=== PATIENT | female | born 1955 | race Caucasian/White ===

== ENCOUNTER 2018-08-20 22:11 | Inpatient (IN) | payer BC ==
[~2018-08-20] VITALS: Ht 170.2 cm; Wt 90.7 kg
--- NOTE | ~2018-08-20 | HEMODYNAMI ---
PATIENT:YULIYA BOWSER MEDICAL RECORD: [id number] : 59 LOCATION:[facility] ADMISSION DATE: 08/20/18 Generatedon:08/20/201823:52 Patient name: YULIYA BOWSER Patient #: [id number] SSN: DO B: 1955 Date of study: 08/20/2018 Page: Of Hemodynamic Procedure Report Patient Data Patient Demographics Procedure consent was obtained First Name: YULIYA Gender: Female Last Name: MAGUE : 1955 Middle Initial: S Age: 62 year(s) Patient #: [id number] Race: Unknown Additional ID: [id number] Contact details Address: [address] [place] [address] State: [place]: [facility] [place] Zip code: [address] Admission Admission Data Admission Date: 08/20/2018 Admission Time: 22:11 Procedure Procedure Types Cath Procedure Diagnostic Procedure LHC LHC w/Coronaries PCI Procedure AMI/SVG/RESOURCES REPRESENTATIVE PTCA or Stent SVG-BMS/COURTENY Initial Procedure Description Procedure Date Procedure Date: 08/20/2018 Procedure Start Time: 23:29 Procedure End Time: 23:52 Procedure Staff Name Function Alexandru Muniz MD Performing Physician [facility] RT Monitor Talita Mancia RN Nurse Mercy Babcock RT Scrub Procedure Data Cath Procedure Fluoroscopy Diagnostic fluoroscopy Total fluoroscopy Time: 3.2 time: 3.2 min min Diagnostic fluoroscopy Total fluoroscopy dose: 381 dose: 381 mGy mGy Contrast Material Contrast Material Type Amount (ml) Isovue 300 77 Entry Location Entry Primary Successful Side Size Upsize Upsize Entry Closure Succes sful Closure Location (Fr) 1 (Fr) 2 (Fr) Remarks Device Remarks Femoral Right 6 Fr Exoseal artery Short Estimated blood loss: 10 ml Diagnostic catheters Device Type Used For End Catheter Placement MULTIPACK JL 4.0 5Fr Left Coronary catheter Angiography MULTIPACK Pigtail 5 Fr LV Angiography catheter Procedure Complications No complications Procedure Medications Medication Administration Route Dosage Versed I.V. 2 mg Fentanyl I.V. 50 mcg Versed I.V. 2 mg Fentanyl I.V. 50 mcg Versed I.V. 2 mg 0.9% NaCl I.V. 100 ml/hr Oxygen etCO2 Nasal cannula 2 l/min Lidocaine 2% added to field 20 Heparin Flush Bag added to field 2 bags (1000units/500ml NS) Integrilin (Bolus I.V. 7.9 ml 2mg/ml) Lopressor I.V. 5 mg Solumedrol I.V. 125 mg Hemodynamics Rest Heart Rate: 86 (bpm) Pressure Samples Time Site Value (mmHg) Purpose Heart Use Rate(bpm) 23:39 LV 100/16,21 EDP 79 Gradients Valve Time Site Site Mean SEP/DFP Peak To Heart Use 1 2 (mmHg) (sec/min) Peak Rate (mmHg) (bpm) Aortic 23:39 LV AO 87 Snapshots Pre Cath Intra NCS Post Cath Vital Signs Time Heart Resp SPO2 etCO2 NIBP (mmHg) Rhythm Pain Sedation Rate (ipm) (%) (mmHg) Status Level (bpm) 23:18:36 83 14 99 30.7 152/98(124) NSR 0 (11) 10(A) , No pain 23:22:56 78 18 100 29.7 156/100(121) NSR 0 (11) 10(A) , No pain 23:28:19 89 13 100 23 153/100(111) NSR 0 (11) 10(A) , No pain 23:32:19 90 12 100 31.2 120/95(112) NSR 0 (11) 10(A) , No pain 23:36:33 74 19 100 35.6 121/76(101) NSR 0 (11) 10(A) , No pain 23:40:43 68 12 99 37.9 102/66(86) NSR 0 (11) 9(A) , No pain 23:44:53 75 18 99 37.2 95/56(73) NSR 0 (11) 9(A) , No pain 23:48:59 74 17 98 36.4 103/65(81) NSR 0 (11) 10(A) , No pain Medications Time Medication Route Dose Verified Delivered Reason Notes E ffectiveness by by 23:30:11 Versed I.V. 2 mg Alexandru Sanon for sedation St Paco Mancia MD RN 23:30:18 0.9% NaCl I.V. 100 Alexandru Talita used for ml/hr [facility] procedure MD DIALLO 23:30:21 Fentanyl I.V. 50 Alexandru Talita for sedation mcg St Paco Mancia MD RN 23:30:28 Oxygen etCO2 2 Alexandru Talita used for Nasal l/min [facility] procedure cannula MD DIALLO 23:31:27 Solumedrol I.V. 125 Alexandru Talita Per mg St Paco stout MD RN 23:31:37 Lidocaine 2% added 20ml Alexandru Horvath for local to vial [facility] anesthetic field MD BRADY 23:31:44 Heparin Flush added 2 Alexandru Alexandru used for Bag to bags [facility] procedure (1000units/500ml field MD BRADY NS) 23:34:30 Versed I.V. 2 mg Alexandru Talita for sedation St Paco Mancia MD, RN 23:34:37 Fentanyl I.V. 50 Alexandru Talita for sedation mcg St Paco Mancia MD, RN 23:34:51 Integrilin I.V. 7.9 Alexandru Talita for wasted (Bolus 2mg/ml) ml [facility] antiplatelet 2.1mL MD DIALLO therapy 23:37:42 Versed I.V. 2 mg Alexandru Talita for sedation St Paco Mancia MD, RN 23:39:17 Lopressor I.V. 5 mg Alexandru Talita Per St Paco stout MD, RN Procedure Log Time Note 23:05:58 Time tracking: Regular hours (M-F 7:00 - 5:00) 23:06:02 Plan of Care:Hemodynamics will remain stable., Cardiac rhythm will remain stable., Comfort level will be maintained., Respiratory function will remain adequate., Patient/ family verbilizes understanding of procedure., Procedure tolerated without complication.. 23:06:25 Nova Counts RT(R) sent for patient. Start room use. 23:17:17 Patient received from ED to CCL 1 Alert and oriented. Tansferred to table in Supine position. 23:17:18 Warm blankets applied, and yulisa hugger turned on for patient comfort. 23:17:19 Correct patient and procedure confirmed by team. 23:17:22 Signed procedure consent form obtained from patient. 23:17:23 ECG and BP/O2 sat monitors applied to patient. 23:17:24 Vital chart was started 23:18:16 Baseline sample Acquired. 23:24:03 Rhythm: sinus rhythm 23:24:05 Full Disclosure recording started 23:27:41 Zero performed for pressure channel P1 23:27:44 Zero performed for pressure channel P1 23:27:52 H&P Date Dictated: 08/20/2018 Emergent; H&P N/A. 23:27:53 Pre-procedure instructions explained to patient. 23:27:53 Pre-op teaching completed and patient verbalized understanding. 23:27:55 Family in waiting room. 23:27:57 Patient NPO since Midnight. 23:28:01 Is the patient allergic to Iodine/contrast media? Yes. 23:28:27 Is patient on blood thinner?No 23:28:28 Patient diabetic? No. 23:28:31 Was the patient premedicated? Yes 23:28:35 Previous problem with sedation/anesthesia? No ? 23:28:37 Snore? Yes 23:28:38 Sleep apnea? No 23:28:39 Deviated septum? No 23:28:40 Opens mouth fully? Yes 23:28:40 Sticks out tongue? Yes 23:28:42 Airway obstruction? No ? 23:28:48 Dentures? Yes PARTIAL OUT 23:29:03 Pre procedure: right dorsailis pedis pulse 2+ Normal; easily identifiable; not easily obliterated 23:29:09 Patient pain scale 10/10 Chest. 23:29:18 IV patent on arrival in left antecubital with 0.9% NaCl at KVO. 23:29:20 Lab results completed and on chart. 23:29:24 Right groin area was prepped with chlora-prep and draped in sterile fashion 23:29:25 Alarms reviewed by R. N. 23:29:25 Sharps counted by scrub and verified by R.N. 23:29:28 Final Timeout: patient, procedure, and site verified with staff and physician. All members of the team are in agreement. 23:29:29 Right groin site verified by team. 23:29:31 Maximum allowable Isovue 300 dose 300ml. Physician notified. (300ml for normal creatinines. For patients with creatinine of 1.7 or higher multiply weight(kg) x 5 divided by creatinine.) 23:29:34 Fire Safety Assessment: A--An alcohol-based skin anteseptic being used preoperatively., C--Open oxygen or nitrous oxide is being used., D--An ESU, laser, or fiber-optic light is being used. 23:29:37 Physical assessment completed. ASA score P 3 - A patient with severe systemic disease as per Alexandru Muniz MD. 23:29:40 Sedation plan: IV Moderate Sedation Medication:Versed, Fentanyl 23:29:43 Procedure started. 23:29:45 Local anesthetic to right femoral artery with Lidocaine 2% by Alexandru Muniz MD.INITIAL ACCESS ONLY 23:29:53 A 6 Fr Short sheath was inserted into the Right Femoral artery 23:30:01 Use device set Femoral Dx 23:30:02 ACIST Syringe (69128) opened to sterile field. 23:30:03 Bag Decanter (2002S) opened to sterile field. 23:30:03 Medline Cath Pack ([id number]) opened to sterile field. 23:30:04 DIAGNOSTIC WIRE .035 260cm J wire (445998) opened to sterile field. 23:30:06 ACIST Hand Control (00273) opened to sterile field. 23:30:06 ACIST Manifold (77788) opened to sterile field. 23:30:07 DIAGNOSTIC Multipack 5Fr catheter set ([id number]) opened to sterile field. 23:30:11 Versed 2 mg I.V. was administered by Talita Mancia RN; for sedation; 23:30:18 0.9% NaCl 100 ml/hr I.V. was administered by Talita Mancia RN; used for procedure; 23:30:19 SHEATH 6FR Brooks (SQD540) opened to sterile field. 23:30:21 Fentanyl 50 mcg I.V. was administered by Talita Mancia RN; for sedation; 23:30:28 Oxygen 2 l/min etCO2 Nasal cannula was administered by Talita Mancia RN; used for procedure; 23:30:[address] FUENTES PCI 23:30:38 WHISPER 300cm guide wire ([id number]) opened to sterile field. 23:30:40 INFLATOR [facility]it BasixCompak ([id number]) opened to sterile field. 23:30:54 GUIDE 6FR JR 4.0 catheter ([id number]) opened to sterile field. 23:31:27 Solumedrol 125 mg I.V. was administered by Talita Mancia RN; Per physician; 23:31:37 Lidocaine 2% 20ml vial added to field was administered by Alexandru Muniz MD; for local anesthetic; 23:31:44 Heparin Flush Bag (1000units/500ml NS) 2 bags added to field was administered by Alexandru Muniz MD; used for procedure; 23:32:01 6 Fr JR 4.0 guide catheter was inserted over the wire 23:32:13 RCA angiography performed. 23:32:21 WHISPER wire advanced. 23:33:41 Inflate balloon Inflation number: 1 A EMERGE OTW 3.0 x 15 balloon ([id number]) was prepped and advanced across the Mid RCA, then inflated to 12 QUIANA for 0:10 (min:sec). 23:34:30 Versed 2 mg I.V. was administered by Talita Mancia RN; for sedation; 23:34:37 Fentanyl 50 mcg I.V. was administered by Talita Mancia RN; for sedation; 23:34:50 Balloon removed over the wire. 23:34:51 Integrilin (Bolus 2mg/ml) 7.9 ml I.V. was administered by Talita Mancia RN; for antiplatelet therapy; wasted 2.1mL 23:36:49 Place stent Inflation Number: 2 A DARA OTW 3.5 x 22 stent ([id number]) was prepped and advanced across the Mid RCA. The stent was deployed at 14 QUIANA for 0:22 (min:sec). 23:37:42 Versed 2 mg I.V. was administered by Talita Mancia RN; for sedation; 23:37:47 Stent catheter was removed intact over wire. 23:37:47 Wire removed. 23:37:48 Guide catheter removed. 23:38:51 A MULTIPACK JL 4.0 5Fr catheter was advanced over the wire and used for Left Coronary Angiography. 23:39:15 A MULTIPACK Pigtail 5 Fr catheter was advanced over the wire and used for LV Angiography. 23:39:17 Lopressor 5 mg I.V. was administered by Talita Mancia RN; Per physician; 23:39:32 LV gram done using POLANCO 23:39:36 EF : 55 % 23:39:40 Injector settings: Ml/sec: 10, Volume: 20, 23:39:52 Catheter removed. 23:40:04 Sheath removed intact; hemostasis achieved with Exoseal to the Right Femoral artery. 23:40:07 Procedure ended.(Physican Out) 23:41:19 Fluoroscopy time 03.20 minutes. 23:41:24 Fluoroscopy dose: 381 mGy 23:41:24 Flurop Dose total: 381 23:41:28 Contrast amount:Isovue 300 77ml. 23:41:39 Sharps counted by scrub and verified by R.N. 23:41:40 Insertion/operative site no bleeding no hematoma. 23:41:43 Post-op/insertion site Right Femoral artery dressed using a 4 x 4 and Tegaderm. 23:41:46 Post right femoral artery:stable, clean and dry 23:41:47 Post Procedure Pulses reassessed and unchanged 23:41:51 Post-procedure physical assessment completed. ASA score P 3 - A patient with severe systemic disease as per Alexandru Muniz MD. 23:41:53 Post procedure rhythm: unchanged. 23:42:00 Estimated blood loss: 10 ml 23:42:02 Post procedure instruction explained to patient.Patient verbalizes understanding. 23:42:02 Patient needs reinforcement of post procedure teaching. 23:42:10 Procedure Complication : No complications 23:42:34 See physician's report for complete and final results. 23:43:06 Procedure type changed to Cath procedure, Diagnostic procedure, LHC, LHC w/Coronaries, PCI procedure, AMI/SVG/RESOURCES REPRESENTATIVE PTCA or Stent, SVG-BMS/COURTNEY Initial 23:44:26 EXOSEAL 6Fr (EX600) opened to sterile field. 23:44:28 Tegaderm 4 x 4 (1626W) opened to sterile field. 23:44:49 Procedure and supply charges have been captured, reviewed, submitted and are correct. 23:51:53 Vital chart was stopped 23:51:55 Report given to CVICU. 23:51:58 Patient transfered to CVICU with Bed. 23:52:02 Procedure ended. 23:52:02 Full Disclosure recording stopped 23:52:06 End room use (Document Last) Intervention Summary Intervention Notes Time ActionType Lesion and Equipment Action# Pressure Duration Attributes Used 23:33:41 Inflate Mid RCA EMERGE OTW 1 12 00:10 balloon 3.0 x 15 balloon ([id number]) 23:36:49 Place stent Mid RCA DARA OTW 3.5 2 14 00:23 x 22 stent ([id number]) Device Usage Item Name Manufacture Quantity Catalog Number Hospital Part Current M inimal Lot# / Charge Number Stock Stock Serial# Code ACIST Syringe Acist 1 07857 453286 387665 518823 2 0 (28601) Medical Systems Inc Bag Decanter Microtek 1 947167 17230 724274 5 () Medical Inc. Medline Cath Medline 1 [id number] 278332 72927 829423 5 Pack ([id number]) DIAGNOSTIC St Sukumar 1 575676 456741 729536 828628 3 0 WIRE .035 260cm J wire (813723) ACIST Hand Acist 1 68536 541697 152170 310181 5 Control Medical (45065) Systems Inc ACIST Acist 1 32756 262420 617498 931579 5 Manifold Medical (25869) Systems Inc DIAGNOSTIC Cardinal 1 VT3087 263711 03537 915600 3 0 Multipack 5Fr Health catheter set (YM5622) SHEATH 6FR Terumo 1 VRC504 886853 973157 913300 4 0 Brooks (BOU462) WHISPER 300cm Ballard 1 [id number] 503968 652173 477000 5 guide wire Vascular ([id number]) INFLATOR [facility] 1 GA9486 531101 374889 738909 1 5 [facility] BasixCompak (EY9819) GUIDE 6FR JR Medtronic 1 [id number] 314591 42595 770473 1 4.0 catheter (EO1GT31) EMERGE OTW [place] 1 [id number] 625142 062133 335632 5 [id number] 3.0 x 15 Scientific balloon ([id number]) DARA OTW 3.5 Medtronic 1 [id number] 147120 7317212 296001 5 [id number] x 22 stent ([id number]) MULTIPACK JL Cardinal 1 [id number] 5 4.0 5Fr Health catheter MULTIPACK Cardinal 1 692908 5 Pigtail 5 Fr Health catheter EXOSEAL 6Fr Cardinal 1 EX600 965855 325795 938688 1 0 (EX600) Health Tegaderm 4 x 3M 1 1626W 699255 080668 824567 5 4 (1626W) Signature Audit Beason Stage Time Signature Unsigned Intra-Procedure 08/20/2018 Nova 11:52:16 PM Counts RT(R) Signatures Monitor : Nova Signature : Counts RT Date : Time : [place] [address] [place] [address]
--- NOTE | ~2018-08-20 | EC ---
PATIENT:YULIYA BOWSER DATE OF SERVICE: 08/21/18 SEX: F MEDICAL RECORD: [id number] DATE OF : 59 LOCATION:[place] [address] AGE OF PATIENT: 62 ADMISSION DATE: 08/21/18 REFERRING PHYSICIAN: INTERPRETING PHYSICIAN: RONNY VICK MD ECHOCARDIOGRAM REPORT ECHO CHARGES 4 ECHO COMPLETE Date: 08/21/18 CLINICAL DIAGNOSIS: ACUTE CT ECHOCARDIOGRAPHIC MEASUREMENTS (adult normal given) AC root (d.<3.7cm) 3.3 cm LV Septum d (<1.2 cm> 1.3 cm Valve Excursion 1.6 cm LV Septum (systole) 1.6 cm Left Atria (s.<4.0cm> 3.5 cm LVPW d(<1.2cm) 1.5 cm RV (d.<2.3cm) 3.4 cm LVPW (sytole) 1.7 cm LV diastole(<5.6CM) 4.6 cm MV E-F(>70mm/sec) cm LV systole 3.1 cm LVOT Diameter 2.2 cm MV exc.(>10mm) 1.6 cm Est.ejection fraction (50-75%) % DOPPLER: LVIT cm/sec A 75.0 cm/sec E 61.0 cm/sec LA cm/sec RVSP 23 mmHg LVOT 124 cm/sec AOP1/2T m/s Asc. Ao 131 cm/sec RVOT 101 cm/sec RA cm/sec PA 124 cm/sec AV Gradient Peak 6.86 mmHg AV Mean 2.81 mmHg AV Area 3.8 cm MV Gradient Peak 4.16 mmHg MV Mean 1.50 mmHg MV Area cm COMMENTS: Package Wrapper: Reinier DOUGHERTY Public Relations Senior Associate: 3 Dr. Lewis TAPE# PACS Pericardial Effusion N DATE OF SERVICE: 08/21/2018 Adequate 2-D, color-flow and spectral Doppler, and M-mode. Borderline LVH. LV internal dimensions are normal. Wall motion is normal. EF is greater than 55%. Aortic valve is tricuspid. No evidence of stenosis on Doppler interrogation. Left atrium is normal. Mitral valve shows no prolapse. Trace MR. Right side is grossly normal. Trace TR. TRANSINT:[id number] Voice Confirmation ID: [id number] DOCUMENT ID: [id number] ECHOCARDIOGRAM REPORT [id number] YULIYA BOWSER GREGORY A MD CC: [id number] DICTATION DATE: 08/22/18 1328 [place] LAYER: 08/22/18 1533 DIS IN 08/22/[address] [place] [address] [place] [address]
--- NOTE | ~2018-08-20 | DS ---
PATIENT:YULIYA BOWSER :59 MEDICAL RECORD: [id number] DISCHARGE SUMMARY ADMISSION DATE: 08/20/18 DISCHARGE DATE: DATE OF ADMISSION: 08/20/2018 DATE OF DISCHARGE: 08/22/2018 PROBLEM LIST: Acute inferior myocardial infarction. BRIEF HISTORY AND HOSPITAL COURSE: She presented to the ER with acute inferior myocardial infarction. She underwent urgent revascularization and did well with the exception of some reperfusion arrhythmias, requiring cardioversion. LV function was preserved at that time. Discharged home on Plavix, aspirin, beta blockade, and statin. DIET: AHA diet. ACTIVITY: As tolerated. We will schedule for cardiac rehab as well. Follow up with me in 3-4 weeks. TRANSINT:[id number] Voice Confirmation ID: [id number] DOCUMENT ID: [id number] RONNY VICK MD CC: [id number] DICTATION DATE: 08/22/18821 CIGARETTE PACKING MACHINE OPERATOR: 08/22/18 2143 [facility] [address] [place] [address]
[2018-08-20 22:30] LABS: BASOPHILS 0.6 % (0-2); EOSINOPHILS 2.8 % (0-7); HEMATOCRIT 40.2 % (36.0-48.0); HEMOGLOBIN 14.1 g/dL (12-16); IMMATURE GRANULOCYTES 0.3 % (0-5); LYMPHOCYTES 44.3 % (15-50); MCH 30.8 pg (26.0-34.0); MCHC 35.1 g/dL (31.0-37.0); MCV 87.8 fL (80.0-100.0); MEAN PLATELET VOLUME 9.6 fL (7.4-10.4); PLATELET COUNT 313 10x3/uL (130-400); RBC 4.58 10x6/uL (4.00-5.40); RDW 13.2 % (11.5-14.5); WBC 12.3 10x3/uL (4.8-10.8)
[2018-08-20 22:37] LABS: APTT 24.4 SECONDS (22.8-39.4); INR 0.95 (0.85-1.17); PROTIME 12.2 SECONDS (11.6-15.0)
[2018-08-20 22:46] LABS: ALBUMIN 3.4 g/dL (3.4-5.0); ALKALINE PHOSPHATASE 84 U/L (46-116); ALT (SGPT) 17 U/L (10-68); BILIRUBIN - TOTAL 0.19 mg/dL (0.2-1.3); CALC OSMOLALITY 288 mosm/kg (275-300); CALCIUM 9.1 mg/dL (8.5-10.1); CARBON DIOXIDE 25.2 mmol/L (21.0-32.0); CHLORIDE - SERUM 106 mmol/L (98-107); CREATININE - SERUM 0.8 mg/dL (0.6-1.3); GLUCOSE 140 mg/dL (74-106); POTASSIUM - SERUM 3.7 mmol/L (3.5-5.1); PROTEIN - SERUM 6.6 g/dL (6.4-8.2); SODIUM 143 mmol/L (136-145); UREA NITROGEN 19 mg/dL (7-18); eGFR NON AFRICAN AMERICAN 77 mL/min (90-120)
[2018-08-20 23:02] LABS: CKMB 0.7 U/L (0.0-3.6); CREATINE KINASE 66 UL (21-215)
[2018-08-20 23:13] LABS: TROPONIN-I 0.375 ng/mL (0.000-0.060)
--- NOTE | 2018-08-20 23:15 | NUR ---
BENADRYL AND NX OVERIDE IN PYXIS. REGISTER IN CHANCERY HERE TO GET PT, SAID THEY NEEDED THE BENADRYL. MEDICATION GIVEN TO REGISTER IN CHANCERY NURSE.
[2018-08-21] VITALS (26 sets, daily range): BP systolic 95–136; BP diastolic 50–83; Ht 170.2 cm; Wt 90.7 kg
--- NOTE | 2018-08-21 00:10 | NUR ---
PT RECIEVED FROM TELECOM FIELD TECHNICIAN VIA BED. MONITOR EQUIP ESTABLISHED. VSS. DENIES PAIN. PPP. RIGHT GROIN CATH SITE DRSG CDI. NO HEMATOMA. SR PER CM.
--- NOTE | 2018-08-21 02:00 | NUR ---
WAKEN EASILY. DENIES PAIN. CATH SITE DRSG CDI. NO HEMATOMA.
--- NOTE | 2018-08-21 05:30 | NUR ---
PT AWAKE AND ALERT. ASSISTED TO RESTROOM. VOIDED. BED LINEN CHANGED. PARTNER AT BEDSIDE.
--- NOTE | 2018-08-21 07:30 | NUR ---
SHIFT REPORT RECEIVED. PT RESTING COMFORTABLY IN BED. GETS IN AND OUT OF BED WITH MINIMAL ASSISTANCE. ON ROOM AIR. DENIES CHEST PAIN. R- GROIN CATH SITE C/D/I. NO HEMATOMA NOTED. HAS PIV ON LEFT AC S.L. PEDAL PULSES PALPABLE EQUAL BILATERALLY. SHIFT ASSESSMENT COMPLETED. WILL CONTINUE TO MONITOR.
--- NOTE | 2018-08-21 09:13 | NUR ---
AM MEDS GIVEN. PT ATE ABOUT 50% OF BREAKFAST TRAY. PHYSICAL THERAPY AT BEDSIDE.
--- NOTE | 2018-08-21 09:33 | NUR ---
AM MEDS GIVEN. PT CONCERN THAT SHE WILL NOT BE ABLE TO AFFORD PLAVIX PRESCRIPTION SINCE HER INSURANCE WILL NOT COVER IT. PT AMBULATED TO BATHROOM INDEPENDTLY.
--- NOTE | 2018-08-21 12:02 | NUR ---
PT REPORTED SOME NAUSA. OZZIE SALOMON APN WITH CARDIOLOGY NOTIFIED. ORDERED ZOFRAN 4MG IV Q 4HR PRN.
--- NOTE | 2018-08-21 12:09 | NUR ---
ZOFRAN 4MG IV GIVEN FOR NAUSEA.
--- NOTE | 2018-08-21 12:27 | NUR ---
PT FEELING SICK TO STOMACH. DENIES ANY CHEST PAIN. SITTING UP IN CHAIR. WILL CONTINUE TO MONITOR.
--- NOTE | 2018-08-21 12:51 | NUR ---
PT FEELING BETTER. NAUSEA HAS DECREASED AT THIS TIME. RESTING IN BED. WILL CONTINUE TO MONITOR.
--- NOTE | 2018-08-21 14:00 | NUR ---
RESTING COMFORTABLY. APPEARS ASLEEP. VSS. WILL CONTINUE TO MONITOR.
--- NOTE | 2018-08-21 15:15 | NUR ---
PT REPORTS ABDOMINAL PAIN WITH NAUSEA. PAIN IS 8/10. DR. VICK NOTIFIED. ORDERED PROTONIX 40MG IV X ONE.
--- NOTE | 2018-08-21 15:33 | NUR ---
PROTONIX 40MG IV GIVEN PER ORDERS.
--- NOTE | 2018-08-21 16:21 | NUR ---
PT REPORTS SOME RELIEF WITH DOSE OF PROTONIX. STOMACH PAIN/DISCOMFORT IS MUCH MORE TOLERABLE AT THIS TIME. WILL CONTINUE TO MONITOR.
--- NOTE | 2018-08-21 17:42 | NUR ---
PT FEELING MUCH BETTER. WAS ABLE TO EAT PART OF HER DINNER. DENIES FURTHER NEEDS AT THIS TIME. WILL CONTINUE TO MONITOR.
--- NOTE | 2018-08-21 19:17 | NUR ---
REPORT RECEIVED, SHIFT ASSESSMENT COMPLETED PER FLOW SHEET. AAOX4. PPP. LT AC PIV PATENT, NO SIGNS OF INFECTION OR INFILTRATION. NO ACUTE DISTRESS NOTED. DENIES PAIN OR NEEDS. SEE FLOW SHEET FOR COMPLETE ASSESSMENT. CALL LIGHT WITHIN REACH.
--- NOTE | 2018-08-21 21:20 | NUR ---
SCHEDULED LOPRESSOR GIVEN, WATER PROVIDED. DENIES NEEDS. CALL LIGHT WITHIN REACH.
--- NOTE | 2018-08-21 23:01 | NUR ---
REASSESSMENT COMPLETED PER FLOW SHEET, SEE FOR DETAILS. NO ACUTE CHANGES NOTED. PPP. DENIES PAIN OR NEEDS. CALL LIGHT WITHIN REACH. WILL CONTINUE TO MONITOR.
[2018-08-22] VITALS (10 sets, daily range): BP systolic 92–113; BP diastolic 41–69
--- NOTE | 2018-08-22 01:00 | NUR ---
RESTING, NO ACUTE DISTRESS NOTED. WILL CONTINUE TO MONITOR.
--- NOTE | 2018-08-22 03:12 | NUR ---
REASSESSMENT COMPLETED PER FLOW SHEET, SEE FOR DETAILS. NO ACUTE CHANGES NOTED. DENIES NEEDS. WILL CONTINUE TO MONITOR.
--- NOTE | 2018-08-22 05:00 | NUR ---
RESTING, NO ACUTE DISTRESS NOTED. DENIES NEEDS. WILL CONTINUE TO MONITOR.
--- NOTE | 2018-08-22 08:18 | OP ---
PATIENT NAME: YULIYA BOWSER MEDICAL RECORD: [id number] :59 LOCATION:[facility] ADMISSION DATE:08/21/18 SURGEON: RONNY VICK MD DATE OF OPERATION: PROCEDURES: Left heart catheterization, selective coronary angiography, PTCA and stent report, right femoral artery approach. CATHETERS: A 5-Marshallese sheath, 5/4 left and right Dakota, 5/4 pig. The procedure was well tolerated, proceeded to urgent PTCA and stenting to the right coronary. FINDINGS: Left ventriculography in 30-degree POLANCO view shows inferior hypokinesis. Overall LV function is well preserved at 50% or better. CORONARY ANATOMY: LEFT MAIN: Left main is free of disease. LAD: LAD is free of disease in the diagonal system. CIRCUMFLEX: Free of disease in the marginal system. RIGHT CORONARY ARTERY: Right coronary fills the RV branch, totally occluded. 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 PLAN: Intervention momentarily. DESCRIPTION OF PROCEDURE: Using indwelling 6-Marshallese sheath, JR4 guiding catheter provided good guide catheter support followed by 300-cm Whisper wire. Pre-deployment balloon used was a 3.0 x 15-mm Larue up to 10 atmospheres, but had marked reperfusion arrhythmias including ventricular fibrillation requiring cardioversion of 200 joules to restore respiration and normal sinus rhythm with marked improvement in ST elevation. Next, stent deployed was a 3.5 x 22-mm Seth drug-eluting stent up to 14 atmospheres for 45 seconds. Final angiography shows excellent resolution of 100% stenosis, no significant residual. DEJAH flow 3 throughout the procedure. Heparin was used during the case as was Integrilin. Plavix was loaded in the lab. Sheath closed with ExoSeal device. TRANSINT:[id number] Voice Confirmation ID: [id number] DOCUMENT ID: [id number] RONNY VICK MD at 0818 CC: [id number] DICTATION DATE: 08/20/18 235 SAP BASIS ADMINISTRATOR: 08/21/18 0832 ADM IN [facility] [address] [place] [address]
--- NOTE | 2018-08-22 08:18 | HP ---
PATIENT: YULIYA BOWSER MEDICAL RECORD: [id number] ACCOUNT: [id number] LOCATION:[facility] D.CV01 : 59 ADMISSION DATE: 08/21/18 PCP: MAHESH SHEPARD HISTORY AND PHYSICAL EXAMINATION HISTORY OF PRESENT ILLNESS: A 62-year-old female with no known history of coronary artery disease, really no other major medical illnesses. No chronic medications. Smokes about a pack a day. Two-day history of intermittent chest tightness, pressure with and without exertion, radiating to the jaw, some nausea and uneasy feeling, began acutely worse prior to admission, presented to the ER, was found to have inferior ST elevations, being brought to label stamper on an urgent basis. PAST MEDICAL HISTORY: Otherwise unremarkable. MEDICATIONS: None chronically. ALLERGIES: SULFA, CODEINE, AMOXICILLIN. SOCIAL HISTORY: Smokes about a pack a day, nondrinker, no illicit drug use. No set exercise program. REVIEW OF SYSTEMS: The patient reports easy bruising but reports no swollen glands. The patient reports no fever, no night sweats, no significant weight gain, no significant weight loss. No significant exercise tolerance. The patient reports no dry eyes, no irritation, no vision change. Patient reports no difficulty hearing and no ear pain. Patient reports no frequent nose bleeds or nose and sinus problems. Patient reports on arm pain on exertion. No shortness of breath while lying down. No history of heart murmur. Patient reports no cough, no wheezing or coughing up blood. Patient reports no abdominal pain, no vomiting. Normal appetite. No diarrhea and not vomiting blood. No nausea and no constipation. Patient reports no incontinence. No difficulty urinating. No hematuria. No increased frequency. Patient reports no muscle aches. No weakness, no arthralgias, no back pain. No swelling of the extremities. Patient reports no abnormal mole, no jaundice, no rashes. Reports no loss of consciousness. No weakness and no numbness. No seizures, dizziness, or headaches. The patient reports no depression, no sleep disturbance, feeling safe in a relationship and no alcohol abuse. Patient reports on fatigue. Reports no runny nose or sinus pressure. No itching, no hives, and no frequent sneezing. PHYSICAL EXAMINATION: GENERAL: A middle-aged female, in [id number] distress. VITAL SIGNS: 139/84, pulse 67 and regular. HEENT: Normocephalic and atraumatic. NECK: No JVD or bruit. HEART: Regular, S4 gallop is noted. LUNGS: Good air excursion. ABDOMEN: Soft and nontender. EXTREMITIES: Pulses are 2+ with no edema. IMPRESSION: Acute inferior myocardial infarction. PLAN: Angiography and intervention based on above. HISTORY AND PHYSICAL [id number] YULIYA BOWSER TRANSINT:[id number] Voice Confirmation ID: [id number] DOCUMENT ID: [id number] RONNY VICK MD at 0818 CC: [id number] DICTATION DATE: 08/20/182311 PROCEDURES ANALYST: 08/21/18 0542 ADM IN [address] [place] [address]
--- NOTE | 2018-08-22 09:15 | NUR ---
ATE 100% OF BREAKFAST. AM MEDS GIVEN. NO FURTHER NEEDS AT THIS TIME.
--- NOTE | 2018-08-22 09:17 | NUR ---
SPOKE WITH CLAY AT [facility]. PT SCHEDULE FOR FOLLOW UP ON SEPTEMBER 17 AT 11:00
--- NOTE | 2018-08-22 10:01 | NUR ---
DISCHARGE INSTRUCTIONS REVIEWED WITH PATIENT. PRESCRIPTIONS GIVEN FOR PLAVIX, LIPITOR, AND LOPRESSOR. LEFT AC PIV REMOVED WITH CATHETER TIP INTACT. PT AMBULATED TO PERSONAL VEHICLE. PERSONAL BELONGINGS SENT WITH PATIENT. COPY OF DISCHARGE INSTRUCTIONS PLACED IN CHART.
--- NOTE | 2018-08-22 14:39 | MORECARE ---
CASE MANAGEMENT DISCHARGE SUMMARY PATIENT: YULIYA BOWSER UNIT: [id number] ADM DATE: 08/21/18 AGE: 62 : 59 SEX: F ROOM/BED: [facility] AUTHOR: NURY NAPOLES PHYSICIAN: REFERRING PHYSICIAN: RONNY VICK MD DATE OF SERVICE: 08/22/18 Discharge Plan Patient Name: YULIYA BOWSER [facility] [facility] 1955 Planned Disposition: Home Anticipated Discharge Date: Discharge Date: 08/22/2018 Expected LOS: Initial Reviewer: [email or web address] Initial Review Date: 08/22/2018 Generated: 08/22/18 3:38 pm Patient Name: YULIYA BOWSER Page [id number] at 1439 All edits/amendments must be made on the electronic document DICTATION DATE: 08/22/181437 REVERSAL PRINT INSPECTOR: MARCELINO 08/22/18 1438 RPT#: [id number] DC DATE:08/22/18 STATUS: DIS IN [facility] [address] [place] [address] END OF REPORT
--- NOTE | 2018-08-22 14:48 | MORECARE ---
CASE MANAGEMENT DISCHARGE SUMMARY PATIENT: YULIYA BOWSER UNIT: [id number] ADM DATE: 08/21/18 AGE: 62 : 59 SEX: F ROOM/BED: [facility] AUTHOR: NURY NAPOLES PHYSICIAN: REFERRING PHYSICIAN: RONNY VICK MD DATE OF SERVICE: 08/22/18 Discharge Plan Patient Name: YULIYA BOWSER [facility] [facility] 1955 Planned Disposition: Home Anticipated Discharge Date: Discharge Date: 08/22/2018 Expected LOS: Initial Reviewer: [email or web address] Initial Review Date: 08/22/2018 Generated: 08/22/18 3:48 pm DCPIA - Discharge Planning Initial Assessment Updated by [email or web address]: Afia Newberry on 08/22/18 2:39 pm * Is the patient Alert and Oriented? Yes * How many steps to enter\exit or inside your home? * PCP MAHESH CARDOZA * Pharmacy [facility] * Preadmission Environment Home with Family * ADLs Independent * List name and contact numbers for known caregivers / representatives who currently or will assist patient after discharge: MIA CRYSTAL - [facility]- [phone] * Verbal permission to speak to the caregivers and representatives has been obtained from the patient. N/A * Additional services required to return to the preadmission environment? No * Can the patient safely return to the preadmission environment? Yes * Has this patient been hospitalized within the prior 30 days at any hospital? No Last DP export: 08/22/18 1:39 p Patient Name: YULIYA BOWSER Page 98652 at 1448 All edits/amendments must be made on the electronic document DICTATION DATE: 08/22/181446 CERTIFIED NOVELL ENGINEER: MARCELINO 08/22/181446 RPT#: [id number] DC DATE:08/22/18 STATUS: DIS IN [facility] [address] [place] [address] END OF REPORT
--- NOTE | 2018-08-22 14:56 | MORECARE ---
CASE MANAGEMENT DISCHARGE SUMMARY PATIENT: YULIYA BOWSER UNIT: [id number] ADM DATE: 08/21/18 AGE: 62 : 59 SEX: F ROOM/BED: [facility] AUTHOR: YESIKADOC PHYSICIAN: REFERRING PHYSICIAN: RONNY VCIK MD DATE OF SERVICE: 08/22/18 Discharge Plan Patient Name: YULIYA BOWSER Facility: [facility]:[place] : 1955 Planned Disposition: Home Anticipated Discharge Date: Discharge Date: 08/22/2018 Expected LOS: Initial Reviewer: [email or web address] Initial Review Date: 08/22/2018 Generated: 08/22/18 3:56 pm Comments DCP- Discharge Planning Updated by [email or web address]: Afia Newberry on 08/22/18 1:[address] Patient Name: YULIYA BOWSER Admission Status: ER Accout number: [id number] Admission Date: 08-21-2018 : 1955 Admission Diagnosis: Attending: RONNY VICK Current LOS: 1 Anticipated DC Date: Planned Disposition: Home Primary Insurance: [employer] O Discharge Planning Comments: CM met with patient at bedside. Patient lives at home with her family. She plans on returning there upon discharge Patient states she didn't have any medical equipment or home health services prior to admission. Patient denies any discharge needs. Patient was concerned about cost of medications. CM explained that most of the medications she has been placed on have generic drugs and cost approximately 9.00 a month. Patient stated that wouldn't be a problem. CM nguyen continue to follow and assist as needed with discharge planning / needs. National Sales: Afia Newberry DCPIA - Discharge Planning Initial Assessment Updated by [email or web address]: Afia Newberry on 08/22/18 2:39 pm * Is the patient Alert and Oriented? Yes * How many steps to enter\exit or inside your home? * PCP MAHESH CARDOZA * [facility] * Preadmission Environment Home with Family * ADLs Independent * List name and contact numbers for known caregivers / representatives who currently or will assist patient after discharge: MIA CRYSTAL - [facility]- [phone] * Verbal permission to speak to the caregivers and representatives has been obtained from the patient. N/A * Additional services required to return to the preadmission environment? No * Can the patient safely return to the preadmission environment? Yes * Has this patient been hospitalized within the prior 30 days at any hospital? No Last DP export: 08/22/18 1:48 p Patient Name: YULIYA BOWSER Page 40805 at 145 All edits/amendments must be made on the electronic document DICTATION DATE: 08/22/181455 INTERNATIONAL ACCOUNTING MANAGER: MARCELINO 08/22/181455 RPT#: [id number] DC DATE:08/22/18 STATUS: DIS IN [facility] [address] [place] [address] END OF REPORT
== END 2018-08-22 10:08 | disposition home or self-care (01) | DRG 246 ==
LOC: OBSVTIME → D.ER 22:11 → D.CVICU 22:44 → OBSVTIME 08-21 00:11 → D.ER 08-21 00:11 → D.CVICU 08-21 00:12
PROVIDERS: Family Medicine; ADMIT Internal Medicine Interventional Cardiology; ATTEND Internal Medicine Interventional Cardiology
PROC: B2151ZZ Fluoroscopy of Left Heart using Low Osmolar Contrast (ICD-10-PCS; 2018-08-20)
PROC: 4A023N7 Measurement of Cardiac Sampling and Pressure, Left Heart, Percutaneous Approach (ICD-10-PCS; 2018-08-20)
PROC: 027034Z Dilation of Coronary Artery, One Artery with Drug-eluting Intraluminal Device, Percutaneous Approach (ICD-10-PCS; principal; 2018-08-20 23:06)
PROC: B2111ZZ Fluoroscopy of Multiple Coronary Arteries using Low Osmolar Contrast (ICD-10-PCS; 2018-08-20 23:06)
DX: I21.19 ST elevation (STEMI) myocardial infarction involving other coronary artery of inferior wall (principal); I49.01 Ventricular fibrillation; F17.200 Nicotine dependence, unspecified, uncomplicated

== ENCOUNTER → 2019-02-28 11:11 | Outpatient (CLI) | payer BC ==
[2018-08-21 09:09] VITALS: BMI 31.3
--- NOTE | 2019-03-04 13:13 | EC ---
PATIENT:YULIYA BOWSER DATE OF SERVICE: 02/28/19 SEX: F MEDICAL RECORD: [id number] DATE OF : [birth year] [facility] AGE OF PATIENT: 63 ADMISSION DATE: 02/28/19 REFERRING PHYSICIAN: INTERPRETING PHYSICIAN: RONNY VICK MD ECHOCARDIOGRAM REPORT ECHO CHARGES 4 ECHO COMPLETE Date: 02/28/19 CLINICAL DIAGNOSIS: HEART MURMUR ECHOCARDIOGRAPHIC MEASUREMENTS (adult normal given) AC root (d.<3.7cm) 3.3 cm LV Septum d (<1.2 cm> 1.3 cm Valve Excursion 1.6 cm LV Septum (systole) 1.5 cm Left Atria (s.<4.0cm> 2.9 cm LVPW d(<1.2cm) 1.4 cm RV (d.<2.3cm) 3.4 cm LVPW (sytole) 1.5 cm LV diastole(<5.6CM) 4.5 cm MV E-F(>70mm/sec) cm LV systole 3.2 cm LVOT Diameter 1.9 cm MV exc.(>10mm) 1.5 cm Est.ejection fraction (50-75%) % DOPPLER: LVIT cm/sec A 72.0 cm/sec E 63.0 cm/sec LA cm/sec RVSP 26 mmHg LVOT 113 cm/sec AOP1/2T m/s Asc. Ao 126 cm/sec RVOT 69 cm/sec RA cm/sec PA 100 cm/sec AV Gradient Peak 6.31 mmHg AV Mean 3.65 mmHg AV Area 2.5 cm MV Gradient Peak 2.02 mmHg MV Mean 0.90 mmHg MV Area cm COMMENTS: Log Buyer: 2 GRAY DOUGHERTY Model Maker Scale: 3 Dr. Lewis TAPE# PACS Pericardial Effusion N DATE OF SERVICE: Adequate 2D, Color Flow, spectral Doppler, and M-Mode LVH is present. LV internal dimensions normal. Wall motion is normal. EF is greater than 55%. Aortic valve is tricuspid. No evidence of stenosis by Doppler interrogation. Left atrium is normal at 2.9 cm. Mitral valve shows no prolapse. Trace MR. Right-sided chambers are normal. Trace TR. TRANSINT:[id number] Voice Confirmation ID: [id number] DOCUMENT ID: [id number] ECHOCARDIOGRAM REPORT [id number] YULIYA BOWSER RONNY VICK MD at 1313 CC: [id number] DICTATION DATE: 03/03/19 1423 TIP FINISHER: 03/03/19 1745 DEP CLI 02/28/19 [id number] [place] [address]
== END | disposition home or self-care (01) ==
LOC: D.HCCECHO 11:11 → D.HCCARDIO 11:30 → D.HCCECHO 11:30
PROVIDERS: ATTEND Internal Medicine Interventional Cardiology
DX: R01.1 Cardiac murmur, unspecified (principal)

== ENCOUNTER → 2020-06-16 08:41 | Outpatient (CLI) | payer BC ==
[2018-08-21 09:09] VITALS: BMI 31.3
--- NOTE | ~2020-06-16 | EC ---
PATIENT:YULIYA BOWSER DATE OF SERVICE: 06/16/20 SEX: F MEDICAL RECORD: [id number] DATE OF : [birth year] LOCATION:D[facility] AGE OF PATIENT: 64 ADMISSION DATE: 06/16/20 REFERRING PHYSICIAN: INTERPRETING PHYSICIAN: RONNY VICK MD ECHOCARDIOGRAM REPORT ECHO CHARGES 4 ECHO COMPLETE Date: 06/16/20 CLINICAL DIAGNOSIS: CAD/EF ECHOCARDIOGRAPHIC MEASUREMENTS (adult normal given) AC root (d.<3.7cm) 3.0 cm LV Septum d (<1.2 cm> 1.2 cm Valve Excursion 1.5 cm LV Septum (systole) 1.3 cm Left Atria (s.<4.0cm> 3.8 cm LVPW d(<1.2cm) 1.3 cm RV (d.<2.3cm) 3.7 cm LVPW (sytole) 1.4 cm LV diastole(<5.6CM) 5.6 cm MV E-F(>70mm/sec) cm LV systole 3.6 cm LVOT Diameter 2.4 cm MV exc.(>10mm) 1.2 cm Est.ejection fraction (50-75%) % DOPPLER: LVIT cm/sec A 83.0 cm/sec E 69.0 cm/sec LA cm/sec RVSP 35 mmHg LVOT 110 cm/sec AOP1/2T m/s Asc. Ao 119 cm/sec RVOT 62 cm/sec RA cm/sec PA 98 cm/sec AV Gradient Peak 5.70 mmHg AV Mean 3.02 mmHg AV Area 3.7 cm MV Gradient Peak 2.34 mmHg MV Mean 1.00 mmHg MV Area cm COMMENTS: Skilled Nursing Professional: 2 GRAY DOUGHERTY Mop Worker: 3 Dr. Lewis TAPE# PACS Pericardial Effusion N DATE OF SERVICE: Adequate 2D, color flow imaging, spectral Doppler, and M-Mode. FINDINGS: Mild LVH. LV internal dimensions are normal. Wall motion is normal. EF is greater than or equal to 55%. Aortic valve is tricuspid. No evidence of stenosis by Doppler interrogation. Left atrium is normal at 3.8 cm. Mitral valve shows no prolapse. Trace MR. Right side is grossly normal. Trace TR. TRANSINT:[id number] Voice Confirmation ID: [id number] DOCUMENT ID: [id number] ECHOCARDIOGRAM REPORT [id number] YULIYA BOWSER GREGORY A MD CC: [id number] DICTATION DATE: 06/17/20 1320 DOPER OPERATOR: 06/17/20 1439 DEP CLI 06/16/20 [address] [place] [address]
== END | disposition home or self-care (01) ==
LOC: D.HCCECHO 03-03 08:30
PROVIDERS: ATTEND Internal Medicine Interventional Cardiology
DX: I25.10 Atherosclerotic heart disease of native coronary artery without angina pectoris (principal)